=== PATIENT | female | born 1985 ===

== ENCOUNTER 2025-06-23 09:04 | Day surgery (SDC) | payer OTHER ==
[~2025-06-23] VITALS: Ht 165.1 cm; Wt 83.8 kg
[2025-06-23] MEDS ORDERED: Sulfazine EC500 MG PO (09:26)
[2025-06-23] MEDS ORDERED: METH10 (09:27)
[2025-06-23 14:26] LABS: C DIFFICILE DNA NEGATIVE (Negative)
== END 2025-06-23 12:19 | disposition home or self-care (01) ==
LOC: ORSCSDS 09:04
PROVIDERS: Internal Medicine Gastroenterology
PROC: 0DBL8ZX Excision of Transverse Colon, Via Natural or Artificial Opening Endoscopic, Diagnostic (ICD-10-PCS; principal; 2025-06-23 10:15)
PROC: 0DBN8ZX Excision of Sigmoid Colon, Via Natural or Artificial Opening Endoscopic, Diagnostic (ICD-10-PCS; principal; 2025-06-23 10:15)
PROC: 0DBH8ZX Excision of Cecum, Via Natural or Artificial Opening Endoscopic, Diagnostic (ICD-10-PCS; principal; 2025-06-23 10:15)
PROC: 0DBM8ZX Excision of Descending Colon, Via Natural or Artificial Opening Endoscopic, Diagnostic (ICD-10-PCS; principal; 2025-06-23 10:15)
PROC: 0DBP8ZX Excision of Rectum, Via Natural or Artificial Opening Endoscopic, Diagnostic (ICD-10-PCS; principal; 2025-06-23 10:15)
PROC: 0DBK8ZX Excision of Ascending Colon, Via Natural or Artificial Opening Endoscopic, Diagnostic (ICD-10-PCS; principal; 2025-06-23 10:15)
DX: K51.90 Ulcerative colitis, unspecified, without complications (principal); K51.40 Inflammatory polyps of colon without complications; Z79.899 Other long term (current) drug therapy
CPT/HCPCS: 87493; 88305; J2704; J7120